=== PATIENT | male | born 1980 | race Caucasian/White ===

== ENCOUNTER 2016-12-30 03:21 | Emergency (ER) | payer MEDICARE, OTHER ==
[~2016-12-30] VITALS: Ht 180.3 cm; Wt 148.6 kg
[~2016-12-30 03:21] MED LIST: BUPR75TA3 PO; CARB200T6 PO; ZIPR80CA2 PO; ZOLP5 PO
[2016-12-30] MEDS ORDERED: DIPH50 PO (03:27)
[2016-12-30] MEDS ORDERED: DiphenhydrAMINE HCL 25 MG CAPSULE PO ONE (04:15)
[2016-12-30 04:22] VITALS: BP 148/98
== END 2016-12-30 04:23 | disposition home or self-care (01) ==
LOC: EMS 03:22
DX: L30.9 Dermatitis, unspecified (principal); F32.9 Major depressive disorder, single episode, unspecified; F41.9 Anxiety disorder, unspecified
CPT/HCPCS: 99282

== ENCOUNTER 2017-01-18 15:11 | Emergency (ER) | payer MEDICARE, OTHER ==
[~2017-01-18] VITALS: Ht 180.3 cm; Wt 148.6 kg
[~2017-01-18 15:11] MED LIST changes: +DIPH50 PO; -ZOLP5 PO
[2017-01-18] MEDS ORDERED: DiphenhydrAMINE HCL 25 MG CAPSULE PO ONE (16:30)
[2017-01-18] MEDS ORDERED: PredniSONE 20 MG TABLET PO ONE (16:30)
[2017-01-18 17:08] VITALS: BP 134/75
== END 2017-01-18 17:28 | disposition home or self-care (01) ==
LOC: EMS 15:12
DX: L25.9 Unspecified contact dermatitis, unspecified cause (principal); Z88.8 Allergy status to other drugs, medicaments and biological substances
CPT/HCPCS: 99283; J7512

== ENCOUNTER 2017-02-04 18:03 | Emergency (ER) | payer MEDICARE, OTHER ==
[~2017-02-04] VITALS: Ht 180.3 cm; Wt 145.0 kg
[2017-02-04] MEDS ORDERED: BUPR100 PO (18:57)
[2017-02-04] MEDS ORDERED: KETOROLAC TROMETHAMINE 60 MG/2 ML VIAL IM ONE (19:00)
[2017-02-04 19:05] LABS: INFLUENZA TYPE B NEGATIVE FOR TYPE B (NEGATIVE)
[2017-02-04 19:30] VITALS: BP 141/88
== END 2017-02-04 19:48 | disposition home or self-care (01) ==
LOC: EMS 18:04
DX: J06.9 Acute upper respiratory infection, unspecified (principal); J40 Bronchitis, not specified as acute or chronic; Z88.8 Allergy status to other drugs, medicaments and biological substances
CPT/HCPCS: 71020; 87804; 96372; 99285; J1885